=== PATIENT | female | born 1960 | race Caucasian/White ===

== ENCOUNTER 2017-12-18 09:55 | Inpatient (IN) | payer OTHER ==
[~2017-12-18] VITALS: Ht 157.5 cm; Wt 70.5 kg
[2017-12-18 10:43] LABS: PLATELET COUNT 300 x10^3mcL (130-400); RED CELL DISTRIBUTION WIDTH 13.3 % (11.5-14.5)
[2017-12-18 10:44] LABS: BASOPHIL % 0 % (0-2)
[2017-12-18 11:07] LABS: CALCIUM 9.9 mg/dL (8.5-10.1); CARBON DIOXIDE 24.9 mmol/L (21-32); CHLORIDE SERUM 96 mmol/L (98-107); CREATININE SERUM 0.8 mg/dL (0.6-1.0); GFR1 > 60 mL/min; GLUCOSE SERUM 143 mg/dL (74-106); POTASSIUM SERUM 3.4 mmol/L (3.5-5.1); SODIUM SERUM 136 mmol/L (136-145)
[2017-12-18 11:11] LABS: ALBUMIN 4.4 g/dL (3.4-5.0); ALKALINE PHOSPHATASE 139 U/L (46-116); ALT/SGPT 39 U/L (14-59); AST/SGOT 27 U/L (15-37); BILIRUBIN TOTAL 1.1 mg/dL (0.20-1.00); LIPASE 96 IU/L (73-393)
[2017-12-18 11:16] LABS: TOTAL PROTEIN, SERUM 8.4 g/dL (6.4-8.2)
[2017-12-18 11:51] LABS: microscopic required? NO
[2017-12-18 12:05] LABS: UA SPECIFIC GRAVITY 1.015 (1.005-1.035); urine erythrocyte NEGATIVE (NEGATIVE)
[2017-12-18 15:15] LABS: T3 TOTAL 1.31 ng/mL
[2017-12-18 15:27] VITALS: BP 156/88
[2017-12-18 16:37] LABS: FREE T4 1.12 ng/dL (0.76-1.46); FREE THYROXINE INDEX 3.5 ug/dL (1.4-4.5); T4(THYROXINE) 11.5 ug/dL (4.7-13.3)
[2017-12-18 17:28] VITALS: BP 170/90
[2017-12-18 17:59] VITALS: BP 130/76
[2017-12-18 18:12] LABS: AMPHETAMINE QUAL UR NONE DETECTED (See below)
[2017-12-18 19:54] VITALS: BP 134/74
[2017-12-19] VITALS (7 sets, daily range): BP systolic 123–168; BP diastolic 71–89; Ht 157.5 cm; Wt 70.5 kg
[2017-12-19 06:32] LABS: CALCIUM 8.1 mg/dL (8.5-10.1); CARBON DIOXIDE 27.8 mmol/L (21-32); CHLORIDE SERUM 107 mmol/L (98-107); CREATININE SERUM 0.6 mg/dL (0.6-1.0); GFR1 > 60 mL/min; GLUCOSE SERUM 104 mg/dL (74-106); POTASSIUM SERUM 3.7 mmol/L (3.5-5.1); SODIUM SERUM 140 mmol/L (136-145)
[2017-12-19 07:26] LABS: BASOPHIL % 1.3 % (0-2); PLATELET COUNT 226 x10^3mcL (130-400); RED CELL DISTRIBUTION WIDTH 13.5 % (11.5-14.5)
[2017-12-20 05:37] VITALS: BP 137/73
[2017-12-20 06:38] LABS: BASOPHIL % 0.9 % (0-2); PLATELET COUNT 176 x10^3mcL (130-400); RED CELL DISTRIBUTION WIDTH 13.4 % (11.5-14.5)
[2017-12-20 08:12] LABS: CALCIUM 8.3 mg/dL (8.5-10.1); CARBON DIOXIDE 28.5 mmol/L (21-32); CHLORIDE SERUM 108 mmol/L (98-107); CREATININE SERUM 0.8 mg/dL (0.6-1.0); GFR1 > 60 mL/min; GLUCOSE SERUM 118 mg/dL (74-106); POTASSIUM SERUM 3.9 mmol/L (3.5-5.1); SODIUM SERUM 140 mmol/L (136-145)
[2017-12-20] MEDS ORDERED: KEFLEX500 M1 PO (09:50)
[2017-12-20] MEDS ORDERED: HIB480 TOP ×2 (09:51→10:03)
[2017-12-20] MEDS ORDERED: LAC PO (09:51)
[2017-12-20] MEDS ORDERED: BACTROBAN21 (09:52)
[2017-12-20 09:57] VITALS: BP 137/74
[2017-12-20 09:59] VITALS: BP 137/74
== END 2017-12-20 11:06 | disposition home or self-care (01) | DRG 445 ==
LOC: ED 09:55 → DU 14:02
PROVIDERS: Emergency Medicine; Family Medicine
DX: K80.00 Calculus of gallbladder with acute cholecystitis without obstruction (principal); L02.211 Cutaneous abscess of abdominal wall; E87.2 Acidosis; E86.0 Dehydration; E87.6 Hypokalemia; E87.8 Other disorders of electrolyte and fluid balance, not elsewhere classified; Z53.29 Procedure and treatment not carried out because of patient's decision for other reasons; Z88.0 Allergy status to penicillin; Z22.322 Carrier or suspected carrier of Methicillin resistant Staphylococcus aureus
CPT/HCPCS: 83880; 84439; J0360; J0696; J2270; J2274; J2405; J3490; J7030; Q0092